=== PATIENT | male | born 1950 | race Caucasian/White ===

== ENCOUNTER 2016-09-21 09:24 | Day surgery (SDC) | payer MEDICARE, OTHER ==
[2016-09-21] MEDS ORDERED: LACTATED RINGERS 1,000 ML IV ONE (10:07)
[2016-09-21] MEDS ORDERED: fentaNYL 250 MCG/5 ML VIAL IVP ONE (10:56)
[2016-09-21] MEDS ORDERED: MIDAZOLAM 2 MG/2 ML VIAL IVP ONE (10:56)
== END 2016-09-21 09:25 | disposition home or self-care (01) ==
PROC: 0DBP8ZZ Excision of Rectum, Via Natural or Artificial Opening Endoscopic (ICD-10-PCS; 2016-09-21)
PROC: 0DBK8ZZ Excision of Ascending Colon, Via Natural or Artificial Opening Endoscopic (ICD-10-PCS; principal; 2016-09-21 10:30)
DX: Z12.11 Encounter for screening for malignant neoplasm of colon (principal); K62.1 Rectal polyp; D12.2 Benign neoplasm of ascending colon; Z87.891 Personal history of nicotine dependence; I10 Essential (primary) hypertension; E78.5 Hyperlipidemia, unspecified
CPT/HCPCS: 45384; J3010; J7120

== ENCOUNTER 2017-04-15 15:35 | Outpatient (CLI) | payer MEDICARE, OTHER ==
--- NOTE | 2017-04-15 17:08 | MRI Report ---
EXAM: RIGHT KNEE MRI WITHOUT CONTRAST EXAM DATE: 04/15/2017 04:18 PM. CLINICAL HISTORY: RT KNEE PAIN x 6 MOS. COMPARISON: RIGHT KNEE RADIOGRAPHY 04/14/2017. TECHNIQUE: Multiplanar, multisequence T1-weighted and fluid-sensitive sequences of the knee without c ontrast. Other: None. FINDINGS: Bones: No fractures or subluxations. Mild reactive juxtaarticular marrow edema in the medial part of the medial tibial plateau. No bone lesions. Articular Cartilage: Grade 3 cartilaginous degeneration with thinning and irregular surface in the me dial femoral condyle. Grade 2 degenerative changes in the patella and the posterior part of the later al femoral condyle. Medial Meniscus: A small undersurface horizontal tear in the body of the medial meniscus. Lateral Meniscus: The lateral meniscus is intact. Cruciate Ligaments: The anterior and posterior cruciate ligaments are intact. Collateral Ligaments: Mild grade 1 sprain of the medial collateral ligament with small amount of kishan a underneath the proximal part of the ligament. The posterior oblique and lateral collateral ligament s are intact. Tendons: Insertional tendinopathy with increased signal in the medial insertion of the quadriceps ten don without definite tear or laxity. The patellar, semimembranosus, and popliteus tendons are unremar kable. Musculature: No edema or fatty atrophy. Other: Mild effusion without significant synovitis. No popliteal cyst. No loose bodies. The medial a nd lateral retinacula, patellofemoral ligaments and iliotibial band are intact. No bursitis. The subc utaneous tissues and fat pads are unremarkable. IMPRESSION: 1. A small undersurface horizontal tear in the body of the medial meniscus. 2. Mild grade 1 sprain of the medial collateral ligament. 3. Insertional tendinopathy with increased signal in the medial insertion of the quadriceps tendon wi thout definite tear or laxity. 4. Cruciate ligaments are intact. 5. Grade 3 cartilaginous degeneration with thinning and irregular surface in the medial femoral condy le. Grade 2 degenerative changes in the patella and the posterior part of the lateral femoral condyle . 6. Mild reactive juxtaarticular marrow edema in the medial part of the medial tibial plateau. No frac ture. 7. Mild effusion without significant synovitis. [facility] MUSCULOSKELETAL RADIOLOGY SECTION Referring Provider Line: [phone] SITE ID: [id number]
== END 2017-04-15 15:36 | disposition home or self-care (01) ==
LOC: DI 15:35
PROVIDERS: ATTEND Orthopaedic Surgery
DX: S83.241A Other tear of medial meniscus, current injury, right knee, initial encounter (principal); S83.411A Sprain of medial collateral ligament of right knee, initial encounter; M67.863 Other specified disorders of tendon, right knee; M17.11 Unilateral primary osteoarthritis, right knee; M89.8X6 Other specified disorders of bone, lower leg; M25.461 Effusion, right knee

== ENCOUNTER 2017-06-09 07:42 | Outpatient (CLI) | payer MEDICARE, OTHER ==
--- NOTE | 2017-06-09 16:02 | MRI Report ---
EXAM: LEFT KNEE MRI WITHOUT CONTRAST EXAM DATE: 06/09/2017 09:01 AM. CLINICAL HISTORY: Left knee pain for 3 months. COMPARISON: None. TECHNIQUE: Multiplanar, multisequence T1-weighted and fluid-sensitive sequences of the knee without c ontrast. Other: None. FINDINGS: Bones and Articular Cartilage: There is an approximately 1.1 x 1.1 x 1 cm lobular intramedullary lesi on at the medial aspect of the distal femoral metaphysis, which is mostly hyperintense on the T2-weig hted images and hypointense on the T1-weighted images. There are tiny T2 hyperintense foci within the lesion. No surrounding marrow edema. There is a fat-containing lesion at the proximal tibial metaphy sis which is not completely imaged or evaluated on this exam. The lesion measures at least 3.4 cm in AP dimension and 2.8 cm in the medial collateral dimension. There are a few thin septations and possi loco small vessels within the visualized portions of the lesion. Focal grade 2 chondromalacia and apurva cular cartilage fissure at the posterior weightbearing aspect of the lateral femoral condyle. Grade 3 chondromalacia and marrow edema at the posterior aspect of the lateral tibial plateau. Grade 2 chond romalacia at the medial compartment. Partial thickness articular cartilage fissures at the lateral pa tellar facet. Grade 3-4 chondromalacia of the medial patellar facet. Medial Meniscus: Horizontal tear of the posterior horn. A small portion of the posterior horn is flip ped inferomedially within the medial tibial recess (coronal image 17 and sagittal image 24). Lateral Meniscus: Horizontal tear at the posterior horn and body. There is also a radial tear at the posterior horn. Cruciate Ligaments: The anterior and posterior cruciate ligaments are intact. Collateral Ligaments: The medial collateral and lateral collateral ligamentous structures are intact. Tendons: The quadriceps, patellar, semimembranosus, and popliteus tendons are unremarkable. Musculature: No edema or fatty atrophy. Other: Small joint effusion. Small Wylie's cyst. No loose bodies. The medial and lateral retinacula are intact. The subcutaneous tissues and fat pads are unremarkable. IMPRESSION: 1. Horizontal tear of the posterior horn medial meniscus. A small portion of the posterior horn flipp ed inferomedially within the medial tibial recess. 2. Horizontal tear at the posterior horn and body of the lateral meniscus. There is also a small radi al tear at the posterior horn lateral meniscus. 3. A 1.1 x 1.1 x 1 cm intramedullary lesion at the medial aspect of the distal femoral metaphysis whi ch most likely represents an enchondroma. There is also a fat-containing lesion at the proximal tibia l metaphysis which is not completely imaged or evaluated on this exam. The lesion may represent an in traosseous lipoma. If warranted, consider a follow-up MRI of the tibia without with intravenous contr ast to further evaluate the lesion. 4. Tricompartmental chondromalacia. 5. Small joint effusion and Wylie's cyst. [facility] MUSCULOSKELETAL RADIOLOGY SECTION Referring Provider Line: [phone] SITE ID: [id number]
== END 2017-06-09 07:43 | disposition home or self-care (01) ==
LOC: DI 07:42
PROVIDERS: ATTEND Orthopaedic Surgery
DX: S83.242A Other tear of medial meniscus, current injury, left knee, initial encounter (principal); S83.282A Other tear of lateral meniscus, current injury, left knee, initial encounter; M89.9 Disorder of bone, unspecified; M94.262 Chondromalacia, left knee; M71.22 Synovial cyst of popliteal space [Baker], left knee; M25.462 Effusion, left knee

== ENCOUNTER 2019-02-08 08:00 | Outpatient (CLI) | payer MEDICARE, OTHER ==
[2019-02-08 12:52] LABS: ALBUMIN 4.1 g/dL (3.2-5.5); ALBUMIN/GLOBULIN RATIO 1.7 (1.0-2.2); ALKALINE PHOSPHATASE 43 IU/L (42-121); ALT ALANINE AMINOTRANSFERASE 33 IU/L (10-60); AST ASPARTATE AMINOTRANSFERASE 27 IU/L (10-42); BILIRUBIN,TOTAL 0.9 mg/dL (0.2-1.0); BUN - BLOOD UREA NITROGEN 22 mg/dL (6-20); CALCIUM 8.9 mg/dL (8.5-10.3); CARBON DIOXIDE - CO2 24 mmol/L (21-32); CHLORIDE 105 mmol/L (101-111); CHOLESTEROL 186 mg/dL; CREATININE 0.8 mg/dL (0.6-1.2); GFR - MDRD 96 (>89); GLUCOSE 103 mg/dL (70-100); HDL CHOLESTEROL 46 mg/dL; LDL CHOLESTEROL,CALCULATED 120 mg/dL; LDL/HDL RATIO 2.6 (<3.6); SODIUM 139 mmol/L (135-145); TOTAL PROTEIN 6.5 g/dL (6.7-8.2); VLDL CHOLESTEROL 20 mg/dL
[2019-02-08 12:54] LABS: BASOPHILS % (AUTO) 0.5 %; EOSINOPHILS # (AUTO) 0.2 10^3/uL (0.0-0.7); EOSINOPHILS % (AUTO) 3.5 %; HGB - HEMOGLOBIN 14.3 g/dL (14.0-18.0); LYMPHOCYTES % (AUTO) 37.4 %; MEAN CORPUSCULAR HEMOGLOBIN 30.6 pg (27.0-31.0); MEAN CORPUSCULAR HGB CONC 34.1 g/dL (32.0-36.0); MEAN CORPUSCULAR VOLUME 89.8 fL (80.0-94.0); MEAN PLATELET VOLUME 8.1 fL (7.4-11.4); MONOCYTES # (AUTO) 0.5 10^3/uL (0.0-1.0); MONOCYTES % (AUTO) 9.4 %; NEUTROPHILS # (AUTO) 2.6 10^3/uL (1.5-6.6); NEUTROPHILS % (AUTO) 49.2 %; PLT - PLATELET COUNT 148 10^3/uL (130-450); RED BLOOD COUNT 4.68 10^6/uL (4.70-6.10); RED CELL DISTRIBUTION WIDTH 12.9 % (12.0-15.0); WHITE BLOOD COUNT 5.3 x10^3/uL (4.8-10.8)
== END 2019-02-08 08:01 | disposition home or self-care (01) ==
LOC: LAB.WCP 08:00
PROVIDERS: ATTEND Family Medicine
DX: I10 Essential (primary) hypertension (principal); D12.6 Benign neoplasm of colon, unspecified; M23.362 Other meniscus derangements, other lateral meniscus, left knee; R73.9 Hyperglycemia, unspecified; E78.5 Hyperlipidemia, unspecified; Z12.5 Encounter for screening for malignant neoplasm of prostate
CPT/HCPCS: 36415; 80053; 80061; 85025; G0103; 83721; 84153

== ENCOUNTER 2019-04-05 12:51 | Outpatient (CLI) | payer MEDICARE, OTHER ==
--- NOTE | 2019-04-06 14:22 | MRI Report ---
Reason: SHOULDER IMPINGEMENT SYNDROME Procedure Date: 04/05/2019 Accession Number: [id number] / [id number] Procedure: MRI - Shoulder LT W/O CPT Code: FULL RESULT: EXAM: LEFT SHOULDER MRI WITHOUT CONTRAST EXAM DATE: 04/05/2019 02:13 PM. CLINICAL HISTORY: Shoulder impingement syndrome. COMPARISON: SHOULDER 3 VIEW LT 04/02/2019 9:45 AM. TECHNIQUE: Multiplanar, multisequence T1-weighted and fluid-sensitive sequences of the shoulder without contrast. Other: None. FINDINGS: Acromioclavicular Region: The acromion is type II. The acromioclavicular joint is unremarkable. There is a multiloculated bursal effusion consistent with bursitis. Glenohumeral Region: No subluxation. There is a small joint effusion. The articular cartilage is unremarkable. Bone Marrow: No fracture, marrow edema or bone lesions. Labrum: The labrum is unremarkable on this nonarthrographic study. Musculature/Rotator Cuff: There is a 6 x 12 mm high-grade intrasubstance tear of the anterior fibers of supraspinatus. Infraspinatus appears unremarkable. There is a high-grade partial-thickness tear of subscapularis, involving almost the entire width of the tendon. A small number of intact superficial fibers is visible. No edema or fatty atrophy. Biceps Tendon: There is a complete rupture of the proximal long head of biceps proximal to the bicipital groove. The edematous tendon fibers are retracted in the bicipital groove. Other: The subcutaneous tissues are unremarkable. IMPRESSION: 1. Large bursal effusion suggestive of bursitis. 2. Near-complete rupture of subscapularis without atrophy. Full-thickness tear of the biceps tendon with partial retraction of the tendon fibers into the upper arm. 3. High-grade intrasubstance tear of the anterior fibers of supraspinatus. 4. Small glenohumeral joint effusion. [facility]
== END 2019-04-05 12:52 | disposition home or self-care (01) ==
LOC: DI 12:51
PROVIDERS: ATTEND Orthopaedic Surgery Sports Medicine
DX: M75.102 Unspecified rotator cuff tear or rupture of left shoulder, not specified as traumatic (principal); S46.112A Strain of muscle, fascia and tendon of long head of biceps, left arm, initial encounter; M25.412 Effusion, left shoulder

== ENCOUNTER 2020-08-05 08:27 | Outpatient (CLI) | payer MEDICARE, OTHER | END 2020-08-05 08:28 | disposition home or self-care (01) | LOC: DI 08:27 | PROVIDERS: ATTEND Family Medicine | DX: I48.91 Unspecified atrial fibrillation (principal); I51.7 Cardiomegaly | CPT/HCPCS: 93306 ==

== ENCOUNTER 2020-10-02 08:00 | Outpatient (CLI) | payer MEDICARE, OTHER ==
[2020-10-02 15:58] LABS: CALCIUM 9.8 mg/dL (8.5-10.3); CREATININE 0.9 mg/dL (0.6-1.2)
[2020-10-02 16:20] LABS: THYROID STIMULATING HORMONE 3.33 uIU/mL (0.34-5.60)
[2020-10-02 16:22] LABS: FREE T4 (FREE THYROXINE) 0.92 ng/dL (0.58-1.64)
== END 2020-10-02 23:59 | disposition home or self-care (01) ==
LOC: LAB 08:00
PROVIDERS: ATTEND Internal Medicine Cardiovascular Disease
DX: I48.91 Unspecified atrial fibrillation (principal)
CPT/HCPCS: 36415; 80048; 84439; 84443

== ENCOUNTER 2020-10-23 08:40 | Outpatient (CLI) | payer MEDICARE, OTHER ==
[2020-10-23] MEDS ORDERED: REGADENOSON 0.4 MG/5 ML SYRINGE IVP ONE ×2 (11:01→12:04)
[2020-10-23] MEDS ORDERED: AMINOPHYLLINE 500 MG/20 ML VIAL ONE (11:01)
--- NOTE | 2020-10-23 11:46 | CARDIAC PROCEDURE NOTE ---
DATE OF SERVICE: 10/23/2020 Physician: Lucy Coffman MD, [facility] INDICATION: Atrial fibrillation. CARDIAC RISK FACTORS: Male gender, hypertension, hyperlipidemia. DESCRIPTION OF PROCEDURE: After signing informed consent, the patient underwent a Lexiscan pharmaceutical stress test with nuclear myocardial perfusion imaging. RESTING HEART RATE: 100. PEAK HEART RATE: 128. RESTING BLOOD PRESSURE: 111/80. PEAK BLOOD PRESSURE: 116/76. Lexiscan was infused per protocol. The patient had brief shortness of breath, flushing, a "warm and heavy feeling in his chest". All symptoms resolved in under 1 minute spontaneously. Oxygen saturation was 90% to 93% on room air throughout the test. RESTING EKG: Atrial fibrillation, right bundle branch block. EKG AT PEAK: Rare PVC. No new ST segment or T-wave changes develop. SUMMARY: 1. Abnormal resting EKG. 2. No ischemic changes by EKG criteria during this pharmaceutical stress. 3. Nuclear images were reported separately and showed IMPRESSION: cc: Dylan Duvall MD TD: 10/23/2020 11:33 MTDCa
--- NOTE | 2020-10-24 11:08 | Nuclear Medicine Report ---
PROCEDURE: Rest and exercise myocardial perfusion SPECT with gated imaging and ejection fraction INDICATIONS: LEXISCAN - A FIB RADIOPHARMACEUTICAL: 15.1 mCi Tc-99m Myoview IV at rest and 39.1 mCi Tc-99m Myoview IV at peak exerc ise. [id number] was performed. TECHNIQUE: Radiopharmaceutical was injected at peak stress test, and also at rest. SPECT images wer e obtained. SPECT myocardial perfusion images were displayed in short axis, horizontal long axis, an d vertical long axis views. Gated images were reviewed using [employer] software. COMPARISON: None available. CARDIAC STRESS: A standard Angel treadmill exercise tolerance test was performed by the patient under the supervision of an attending staff. The patient exercised for 1 minutes and 41 seconds; functional aerobic impai rment (CARO) is 65%. Hemodynamic data: There is normal blood pressure and heart rate response to exercise stress. Elizabeth t achieved 84% of maximum predicted heart rate at peak exercise. Symptoms: Patient denied chest pain during exercise. EKG: No diagnostic EKG changes of ischemia; no ectopy. FINDINGS: Raw data: There is good myocardial labeling by radiotracer. No significant motion artifacts. Lung- to-heart ratio is (normal is less than 0.38 for tetrafosmin tracer). Left ventricle function: Gated images demonstrate irregular, discoordinated left ventricular contrac tions. No segmental wall motion abnormality. No transient ischemic dilation; TID is 0.99 (normal les s than 1.3). The left ventricle resting end-diastolic volume is 102 mL. Left ventricle stress eject ion fraction is 24%; normal values are above 45%. Myocardial perfusion: There is normal distribution of activity in the left and right ventricular kristy cardium. No fixed or reversible perfusion defects. IMPRESSION: 1. No evidence of myocardial ischemia. 2. Reduced left ventricular ejection fraction of 24%. This may be artifactual. Confirmation with echo cardiography is recommended. PQRS ATTESTATIONS: Measure 322 - Is this imaging test primarily performed on a low-risk surgery patient for preoperative evaluation within 30 days preceding their low-risk non-cardiac surgery? Low-risk surgery is defined as cardiac or myocardial infarction less than 1%, including (but not limited to) endoscopic pr ocedures, superficial procedures, cataract surgery, and excisional breast surgery: Answer: No Measure 323 - Is this imaging test performed primarily for the monitoring of an asymptomatic patient who had percutaneous coronary intervention on the visit date or within 2 years of the visit date? An swer: No Measure 324 - Is this imaging test performed primarily for the initial detection and risk assessment on an asymptomatic, low coronary heart disease patient? Low CHD risk definition = clinicians should consider the maximum number of available patient factors used to estimate risk based on [place] (A TP III criteria), typically age, gender, diabetes, smoking status, and use of blood pressure medicati on, and integrate age appropriate estimates for missing elements, such as LDL or standard blood press ure. Answer: No Reviewed by: Kasie Zurita MD on 10/24/2020 11:07 AM PST Approved by: Kasie Zurita MD on 10/24/2020 11:07 AM PST Station ID: [id number]
== END 2020-10-23 08:41 | disposition home or self-care (01) ==
LOC: DI 08:40
PROVIDERS: ATTEND Internal Medicine Cardiovascular Disease
DX: I48.91 Unspecified atrial fibrillation (principal); R94.31 Abnormal electrocardiogram [ECG] [EKG]
CPT/HCPCS: 78452; 93017; A9500; J2785

== ENCOUNTER 2021-06-06 09:10 | Outpatient (CLI) | payer MEDICARE, OTHER ==
--- NOTE | 2021-06-06 12:34 | XRAY Report ---
PROCEDURE: Finger(s) BILAT INDICATIONS: BILATERAL THUMB PAIN TECHNIQUE: AP hand, 2 views of the first finger(s) acquired. COMPARISON: None FINDINGS: Bones: No fractures or dislocations. No suspicious bony lesions. Bilateral first carpal metacarpal joint space narrowing and subchondral sclerosis noted greater on the left. Soft tissues: No suspicious soft tissue calcifications. IMPRESSION: Osteoarthritis without fracture or foreign body Reviewed by: Gold Nguyen MD on 06/06/2021 11:32 AM [facility]ITO Approved by: Gold Nguyen MD on 06/06/2021 11:32 AM MAYITO Station ID: [id number]
--- NOTE | 2021-06-06 12:35 | Ultrasound Report ---
PROCEDURE: Aorta Screening INDICATIONS: BILAT THUMB PAIN, SCREENING FOR AAA TECHNIQUE: Real time scanning was performed of the aorta and iliac arteries, with image documentatio n. COMPARISON: None FINDINGS: Aorta: Proximal aortic diameter measures 2.5 x 2.5 cm. Mid-aorta measures 2.2 x 2.1 cm. Distal aor tic diameter is 2.4 x 2.2 cm. Trace atherosclerotic plaque noted. Iliac arteries: Right common iliac artery measures 1.3 x 1.4 cm. Left common iliac artery measures 1.4 x 1.3 cm. IMPRESSION: Adjacent aortic sclerotic plaque without evidence of abdominal aortic aneurysm Reviewed by: Gold Nguyen MD on 06/06/2021 11:33 AM [facility]O Approved by: Gold Nguyen MD on 06/06/2021 11:33 AM [facility]ITO Station ID: [id number]
== END 2021-06-06 09:11 | disposition home or self-care (01) ==
LOC: DI 09:10
PROVIDERS: ATTEND Internal Medicine
DX: Z13.6 Encounter for screening for cardiovascular disorders (principal); M18.0 Bilateral primary osteoarthritis of first carpometacarpal joints

== ENCOUNTER 2021-09-18 08:30 | Outpatient (CLI) | payer MEDICARE, OTHER ==
--- NOTE | 2021-09-18 17:26 | XRAY Report ---
PROCEDURE: Chest 2 View X-Ray INDICATIONS: UNEXPLAINED COUGH TECHNIQUE: 2 view(s) of the chest. COMPARISON: None. FINDINGS: Surgical changes and devices: None. Lungs and pleura: No pleural effusions or pneumothorax. Lungs are clear. Mediastinum: Mediastinal contours are normal. Heart is enlarged. Bones and chest wall: No suspicious bony abnormalities. Soft tissues appear unremarkable. IMPRESSION: No acute cardiopulmonary disease process. Cardiomegaly. Reviewed by: Mary Donahue MD, PhD on 09/18/2021 5:24 PM PST Approved by: Mary Donahue MD, PhD on 09/18/2021 5:24 PM PST Station ID: [id number]
== END 2021-09-18 23:59 | disposition home or self-care (01) ==
LOC: DI.N 08:30
PROVIDERS: ATTEND Physician Assistant
DX: R05.9 Cough, unspecified (principal); Z20.822 Contact with and (suspected) exposure to COVID-19
CPT/HCPCS: 71046; U0004

== ENCOUNTER 2023-06-06 09:47 | Outpatient (CLI) | payer MEDICARE, OTHER ==
--- NOTE | 2023-06-06 12:32 | XRAY Report ---
PROCEDURE: Chest 2 View X-Ray INDICATIONS: ACUTE UPPER RESPIRATORY INFECTION TECHNIQUE: 2 views of the chest were acquired. COMPARISON: None. FINDINGS: Surgical changes and devices: None. Lungs and pleura: Patchy right middle lobe airspace opacity. Mediastinum: Mediastinal contours appear normal. Heart size is normal. Bones and chest wall: No suspicious bony lesions. Overlying soft tissues appear unremarkable. IMPRESSION: Patchy right middle lobe airspace opacity, concerning for developing infection. Reviewed by: Boubacar Tamez on 06/06/2023 12:30 PM PDT Approved by: Boubacar Tamez on 06/06/2023 12:30 PM PDT Station ID: [id number]
== END 2023-06-06 23:59 | disposition home or self-care (01) ==
LOC: DI.N 09:47
PROVIDERS: ATTEND Nurse Practitioner
DX: J06.9 Acute upper respiratory infection, unspecified (principal)

== ENCOUNTER 2023-06-20 09:17 | Outpatient (CLI) | payer MEDICARE, OTHER ==
--- NOTE | 2023-06-20 12:29 | XRAY Report ---
PROCEDURE: Chest 2 View X-Ray INDICATIONS: RIGHT MIDDLE LOBE PNEUMONIA TECHNIQUE: 2 views of the chest were acquired. COMPARISON: None. FINDINGS: Surgical changes and devices: None. Lungs and pleura: No pleural effusions or pneumothorax. Lungs are clear. Mediastinum: Mediastinal contours appear normal. Heart size is normal. Bones and chest wall: No suspicious bony lesions. Overlying soft tissues appear unremarkable. IMPRESSION: No acute cardiopulmonary process. Reviewed by: Boubacar Tamez on 06/20/2023 12:27 PM PDT Approved by: Boubacar Tamez on 06/20/2023 12:27 PM PDT Station ID: [id number]
== END 2023-06-20 09:18 | disposition home or self-care (01) ==
LOC: DI 09:17
PROVIDERS: ATTEND Family Medicine
DX: J18.1 Lobar pneumonia, unspecified organism (principal)

== ENCOUNTER 2023-07-04 09:01 | Outpatient (CLI) | payer MEDICARE, OTHER ==
[2023-07-04 09:15] LABS: BASOPHILS % (AUTO) 0.3 %; EOSINOPHILS # (AUTO) 0.4 10^3/uL (0.0-0.7); EOSINOPHILS % (AUTO) 5.5 %; HCT - HEMATOCRIT 42.4 % (42.0-52.0); HGB - HEMOGLOBIN 14.7 g/dL (14.0-18.0); LYMPHOCYTES # (AUTO) 2.8 10^3/uL (1.5-3.5); LYMPHOCYTES % (AUTO) 44.8 %; MEAN CORPUSCULAR HEMOGLOBIN 31.5 pg (27.0-31.0); MEAN CORPUSCULAR HGB CONC 34.7 g/dL (32.0-36.0); MONOCYTES # (AUTO) 0.5 10^3/uL (0.0-1.0); MONOCYTES % (AUTO) 8.2 %; NEUTROPHILS # (AUTO) 2.6 10^3/uL (1.5-6.6); PLT - PLATELET COUNT 177 10^3/uL (130-450); RED BLOOD COUNT 4.66 10^6/uL (4.70-6.10); RED CELL DISTRIBUTION WIDTH 13.8 % (12.0-15.0); WHITE BLOOD COUNT 6.3 x10^3/uL (4.8-10.8)
[2023-07-04 09:40] LABS: CALCIUM 9.5 mg/dL (8.5-10.3); POTASSIUM 3.9 mmol/L (3.5-4.5)
== END 2023-07-04 09:02 | disposition home or self-care (01) ==
LOC: LAB 09:01
PROVIDERS: ATTEND Internal Medicine Cardiovascular Disease
DX: I48.11 Longstanding persistent atrial fibrillation (principal)
CPT/HCPCS: 36415; 80048; 85025

== ENCOUNTER 2023-10-26 10:15 | Outpatient (CLI) | payer MEDICARE, OTHER ==
--- NOTE | 2023-10-26 12:47 | XRAY Report ---
PROCEDURE: Chest 2V INDICATIONS: CHRONIC COUGH TECHNIQUE: 2 views of the chest were acquired. COMPARISON: 06/20/2023 FINDINGS: Surgical changes and devices: None. Lungs and pleura: No pleural effusions or pneumothorax. Lungs are clear. Linear atelectasis versus scarring at the left base. Mediastinum: Mediastinal contours appear normal. Heart size is normal. Bones and chest wall: No suspicious bony lesions. Overlying soft tissues appear unremarkable. IMPRESSION: No acute cardiopulmonary process. Reviewed by: Mukesh Gomez MD on 10/26/2023 12:45 PM PST Approved by: Mukesh Gomez MD on 10/26/2023 12:45 PM PST Station ID: [id number]
== END 2023-10-26 10:30 | disposition home or self-care (01) ==
LOC: DI.N 10:15
PROVIDERS: ATTEND Physician Assistant
DX: R05.3 Chronic cough (principal)

== ENCOUNTER 2024-01-02 10:29 | Outpatient (CLI) | payer MEDICARE, OTHER ==
[2024-01-02 10:42] LABS: BASOPHILS % (AUTO) 0.5 %; EOSINOPHILS # (AUTO) 0.2 10^3/uL (0.0-0.7); EOSINOPHILS % (AUTO) 2.6 %; HCT - HEMATOCRIT 45.5 % (42.0-52.0); HGB - HEMOGLOBIN 15.2 g/dL (14.0-18.0); LYMPHOCYTES # (AUTO) 1.9 10^3/uL (1.5-3.5); LYMPHOCYTES % (AUTO) 29.8 %; MEAN CORPUSCULAR HEMOGLOBIN 30.5 pg (27.0-31.0); MEAN CORPUSCULAR HGB CONC 33.4 g/dL (32.0-36.0); MEAN CORPUSCULAR VOLUME 91.2 fL (80.0-94.0); MEAN PLATELET VOLUME 9.5 fL (7.4-11.4); MONOCYTES # (AUTO) 0.6 10^3/uL (0.0-1.0); MONOCYTES % (AUTO) 9.7 %; NEUTROPHILS # (AUTO) 3.7 10^3/uL (1.5-6.6); NEUTROPHILS % (AUTO) 57.2 %; PLT - PLATELET COUNT 179 10^3/uL (130-450); RED BLOOD COUNT 4.99 10^6/uL (4.70-6.10); WHITE BLOOD COUNT 6.5 x10^3/uL (4.8-10.8)
[2024-01-02 11:03] LABS: ALBUMIN 4.4 g/dL (3.2-5.5); ALBUMIN/GLOBULIN RATIO 2.2 (1.0-2.2); BILIRUBIN,TOTAL 0.7 mg/dL (0.2-1.0); CALCIUM 9.9 mg/dL (8.5-10.3); TOTAL PROTEIN 6.4 g/dL (6.4-8.9)
== END 2024-01-02 10:30 | disposition home or self-care (01) ==
LOC: LAB 10:29
PROVIDERS: ATTEND Internal Medicine Cardiovascular Disease
DX: I48.0 Paroxysmal atrial fibrillation (principal)
CPT/HCPCS: 36415; 80053; 85025

== ENCOUNTER 2024-02-15 07:30 | Outpatient (CLI) | payer MEDICARE, OTHER ==
--- NOTE | 2024-02-15 09:47 | XRAY Report ---
PROCEDURE: Chest 2V INDICATIONS: COUGH TECHNIQUE: 2 views of the chest were acquired. COMPARISON: 10/26/2023 FINDINGS: Surgical changes and devices: None. Lungs and pleura: No pleural effusions or pneumothorax. Lungs are clear. Mediastinum: Mediastinal contours appear normal. Heart size is normal. Bones and chest wall: No suspicious bony lesions. Overlying soft tissues appear unremarkable. IMPRESSION: No acute cardiopulmonary process. Reviewed by: Boubacar Tamez MD on 02/15/2024 9:46 AM PDT Approved by: Boubacar Tamez MD on 02/15/2024 9:46 AM PDT Station ID: [id number]
== END 2024-02-15 07:45 | disposition home or self-care (01) ==
LOC: DI.N 07:30
PROVIDERS: ATTEND Family Medicine
DX: R05.9 Cough, unspecified (principal)

== ENCOUNTER 2024-03-09 07:38 | Outpatient (CLI) | payer MEDICARE, OTHER ==
[2024-03-09] MEDS ORDERED: iohexoL-300 100 ML VIAL ONE (07:57)
[2024-03-09] MEDS: iohexoL-300 100 ML VIAL IVP ONE (09:00)
--- NOTE | 2024-03-09 17:53 | CT Report ---
PROCEDURE: Soft Tissue Neck W INDICATIONS: NECK MASS CONTRAST: 100ml omni 300 TECHNIQUE: After the administration of intravenous contrast, 3.0 mm axial sections acquired from the sella to th e aortic arch. Additional oblique axial 3.0 mm sections acquired through the pharynx. 3 mm thick co milagros reformats were generated. For radiation dose reduction, the following was used: automated exp osure control, adjustment of mA and/or kV according to patient size. COMPARISON: None. FINDINGS: Image quality: Excellent. Lymph nodes: No enlarged lymph nodes seen throughout the neck. Vessels: Visualized vasculature appears patent. Atherosclerotic vascular calcifications. Neck spaces: The oropharynx, nasopharynx, and pharynx demonstrate no mucosal lesions. The vocal cor ds, false vocal cords, pyriform sinuses, epiglottis, vallecula, and tongue base all appear normal. E xtramucosal spaces appear unremarkable. Glands: The parotid and submandibular glands appear normal. Thyroid is prominent without nodules se en. Miscellaneous: Visualized brain and orbits appear normal. Lung apices appear clear. Superficial so ft tissues appear normal. Bones: No suspicious bony lesions.. Degenerative changes of the spine. Left maxillary sinus mucous r etention cyst. Visualized sinuses and mastoids otherwise appear unremarkable. IMPRESSION: No enlarged cervical lymph nodes or neck masses are seen. Reviewed by: Mukesh Gomez MD on 03/09/2024 4:51 PM [facility] Approved by: Mukesh Gomez MD on 03/09/2024 4:51 PM [facility] Station ID: [id number]
== END 2024-03-09 07:39 | disposition home or self-care (01) ==
LOC: DI 07:38
PROVIDERS: ATTEND Otolaryngology
DX: R22.1 Localized swelling, mass and lump, neck (principal); R05.3 Chronic cough
CPT/HCPCS: 36415; 70491; 82565; Q9967

== ENCOUNTER 2024-05-19 07:53 | Outpatient (CLI) | payer MEDICARE, OTHER | END 2024-05-19 07:54 | disposition home or self-care (01) | LOC: DI 07:53 | PROVIDERS: ATTEND Family Medicine | DX: R00.1 Bradycardia, unspecified (principal); R06.02 Shortness of breath; R05.9 Cough, unspecified; I48.91 Unspecified atrial fibrillation | CPT/HCPCS: 93307 ==

== ENCOUNTER 2024-05-23 11:00 | Outpatient (CLI) | payer MEDICARE, OTHER ==
--- NOTE | 2024-05-23 16:39 | XRAY Report ---
PROCEDURE: Foot 3+V RT INDICATIONS: SPRAIN OF RIGHT ANKLE TECHNIQUE: 3 views of the foot were acquired. COMPARISON: None. FINDINGS: No acute fracture or dislocation, specifically at the base of the 5th metatarsal. The Lisfranc interv al is preserved on the nonweightbearing views. The other joint spaces are preserved. Mild hallux valg us. Bipartite medial hallux sesamoid. Small accessory navicular. IMPRESSION: No acute fracture or dislocation of the right foot. Reviewed by: Dylan Alejo MD on 05/23/2024 4:38 PM PDT Approved by: Dylan Alejo MD on 05/23/2024 4:38 PM PDT Station ID: [id number]
--- NOTE | 2024-05-23 16:40 | XRAY Report ---
PROCEDURE: Ankle 3+V RT INDICATIONS: SPRAIN OF RIGHT ANKLE TECHNIQUE: 3 views of the ankle were acquired. COMPARISON: Right foot x-ray 05/23/2024 FINDINGS: No acute fracture or dislocation. The ankle mortise is preserved on the nonweightbearing view. No patrick ar dome osteochondral defect. No significant tibiotalar joint effusion. Faint linear calcifications i n the distal Achilles tendon, which can be seen with Achilles tendinosis. IMPRESSION: No acute fracture or dislocation of the right ankle. Reviewed by: Dylan Alejo MD on 05/23/2024 4:39 PM PDT Approved by: Dylan Alejo MD on 05/23/2024 4:39 PM PDT Station ID: [id number]
== END 2024-05-23 11:15 | disposition home or self-care (01) ==
LOC: DI.N 11:00
PROVIDERS: ATTEND Physician Assistant Medical
DX: S93.491A Sprain of other ligament of right ankle, initial encounter (principal)